=== PATIENT | male | born 1975 | race Caucasian/White ===

== ENCOUNTER 2024-12-12 15:21 | Emergency (ER) | payer MEDICAID, SELFPAY ==
[2024-12-12 15:35] VITALS: BP 150/90; BP 212/128; PULSE 73; PULSE 83; RESP 16; TEMP 36.6; O2SAT 90; O2SAT 98; BMI 25.1
--- NOTE | 2024-12-12 15:52 | ED_ITS ---
HPI - Overdose General Chief Complaint: Overdose Stated Complaint: found unresponsive, 4 mg narcan given, now awake Time Seen by Provider: 12/12/24 15:30 Related Data Allergies Allergy/AdvReac Type Severity Reaction Status Date / Time trazodone (TRAZODONE) Allergy Unknown UNKNOWN Verified 12/12/24 15:40 [facility] Social History Social History Unable to assess alcohol history related to: Refusing to respond Smoked in Last 30 Days: Yes Use of substances other than those prescribed or required for medical reasons: Refusing to respond Advance Directives: No Advance Directives Information Provided: No Do you have a plan to hurt others: No Plan Physical Exam Vital Signs: Vital Signs: Last Vital Signs Temp 0 F L 12/12/24 16:21 Pulse 0 L 12/12/24 16:21 Resp 0 L 12/12/24 16:21 BP 0/0 L 12/12/24 16:21 Pulse Ox 98 12/12/24 15:35 O2 Del Method Room Air 12/12/24 15:35 BMI result Body Mass Index 25.1 Course Reevaluation(s) Reevaluation #1: Patient ran all the way to the ICU nursing had to jefe after him. Patient is refusing to stay here. She is choosing to leave against medical advice he recognizes the risks of leaving include but are not limited to Time: 15:56 Medications Administered Discontinued Medications Generic Name Dose Route Start Last Admin Trade Name Luis Enrique PRN Reason Stop Dose Admin Naloxone HCl 8 mg 12/12/24 15:28 12/12/24 16:10 Naloxone Hcl Nasal Take Home 4 Mg [place] NOSTRILALT 12/12/24 15:29 8 mg ONCE ONE Administration Discharge Plan Discharge Clinical Impression: Drug overdose, Left against medical advice Patient Disposition: Left Against Medical Advice Instructions: Against Medical Advice (ED), Adult Overdose (ED) Additional Instructions: Take your medications as prescribed. If you were prescribed antibiotics today, it is important that you take your medication to their entirety, do not skip any doses, do not finish them early. Follow-up with your primary care provider this week. Return to the emergency department with new or worsening symptoms. Such as fev ers, chills, chest pain, shortness of breath, nausea, vomiting, dizziness, headache, vision changes, lethargy In case of emergency call 911 Patient decided to leave against medical advice. I took the time to go over risks of leaving against medical advice including . Patient verbalizes understanding of this. Advised them to come back if they change their mind. Stand Alone Forms: Against Medical Advice Interventions: ED Discharge Assessment Last Done: 12/12/24 16:21 Discharge Date/Time: 12/12/24 16:23 Print Language: Bel[place]ian
--- OUTSIDE RECORDS SUMMARY | 2024-12-12 16:03 | XMS_ITS ---
[facility] Organization [facility] Care Team Organization Name Specialty Phone Email Start Date End Da te [facility] 01/17/2022 10/29/19 24
--- OUTSIDE RECORDS SUMMARY | 2024-12-12 16:03 | XMS_ITS | Clinical Summary ---
Author Organization [facility] Address [address] [place] [address] Phone Care Team Providers Care Evaporator Name Role Phone Physician, No Pcp Primary Care Provider Unavaila ble Allergies No known active allergies Medications No known medications Surgical History Surgery Date Site/Laterality Comments BACK SURGERY Medical History Medical History Date Comments Asthma Hypertension Social History Tobacco Use Types Packs/Day Years Used Date Smoking Tobacco: Never Smokeless Tobacco: Never Tobacco Cessation:Counseling Given: Not Answered Alcohol Use Standard Drinks/Week Comments Not Currently 0 (1 standard drink = 0.6 oz pur e alcohol) Sex and Gender Information Value Date Recorded Sex Assigned at Male 04/24/2024 9:09 PM EST Legal Sex Male 5:30 AM EST Gender Identity Male 04/24/2024 9:09 PM EST Sexual Orientation Straight 04/24/2024 9: 25 PM EST Obstetrics History Last Filed Vital Signs Vital Sign Reading Time Taken Comments Blood Pressure 153/113 04/25/2024 7:52 AM EST Pulse 99 04/25/2024 7:52 AM EST Temperature 36.7 C (98.1 F) 04/25/2024 7:52 AM EST Respiratory Rate 16 04/25/2024 7:52 AM EST Oxygen Saturation 99% 04/25/2024 7:52 AM EST Inhaled Oxygen Concentration - - Weight 86.2 kg (190 lb) 04/24/2024 7:56 PM EST Height 180.3 cm (5' 11 ) 04/24/2024 7:56 PM EST Body Mass Index 26.5 04/24/2024 7:56 PM EST Plan of Treatment Health Maintenance Due Date Last Done Comments Colorectal Cancer Screening: Colonoscopy 1977 Hepatitis A Vaccines (1 of 2 - Risk 2-dose series) 1996 11/18/2001, 11/22/2000 Hepatitis B Vaccines (2 of 3 - 19+ 3-dose series) 10/07/2000 09/09/2000 Pneumococcal Vaccine: Pediatrics (0 to 5 Years) and At-Risk Patients (6 to 49 Years) (2 of 2 - PCV) 02/27/2006 02/27/2005 DTaP,Tdap,and Td Vaccines (2 - Td or Tdap) 11/20/2019 11/19/2009 Cholesterol Screening (Lipid Panel) 02/12/2022 HIV Screening 02/12/2022 Hepatitis C Screening 02/12/2022 Social Influencers of Health Screening 02/12/2022 Depression Screening 03/12/2024 COVID-19 Vaccine ( - season) 2024 05/21/2022, 08/04/2020 Influenza Vaccine (#1) 2024 9, 02/25/2017, 06/08/2016, Additional history exists RSV Immunization Adult Patients (1 - 1-dose 75+ series) 2052 MMR Vaccines Aged Out 07/06/2010 No longer eligi ble based on patient's age to complete this topic HIB Vaccines Aged Out No longer eligi ble based on patient's age to complete this topic HPV Vaccines Aged Out No longer eligi ble based on patient's age to complete this topic IPV Vaccines Aged Out No longer eligi ble based on patient's age to complete this topic Meningococcal ACWY Vaccine Aged Out N o longer eligible based on patient's age to complete this topic Meningococcal B Vaccine Aged Out No l onger eligible based on patient's age to complete this topic RSV Immunization Patients Under 20 months Aged Out No longer eligible based on patient's age to complete this topic Varicella Vaccines Aged Out No longer eligible based on patient's age to complete this topic Insurance PLAN Care Teams Evaporator Relationship Specialty Start Date End Date Physician, No Pcp PCP - General 04/24/24
[2024-12-12] MEDS: Naloxone HCl Nasal TAKE HOME 4 MG SPRAY 8 MG NOSTRILALT (16:10)
--- NOTE | 2024-12-12 16:14 | PC.NURSE ---
Pt requesting to leave AMA, MINERVA Ramon made aware. Pt up oob, ambulatory in hallway with steady gait. Pt stating Ya'll can't keep me locked up. Pt given taken home narcan, educated on leaving AMA. Pt understands education given by this RN. Belongings given back to patient, pt ambulatory to bathroom with steady gait.
[2024-12-12 16:21] VITALS: BP 0/0; PULSE 0; RESP 0; TEMP -17.7; TEMP 0
== END 2024-12-12 16:23 | disposition left against medical advice (07) ==
PROVIDERS: Emergency Provider Emergency Medicine
DX: T50.901A Poisoning by unspecified drugs, medicaments and biological substances, accidental (unintentional), initial encounter (principal); R40.4 Transient alteration of awareness; Y92.9 Unspecified place or not applicable
CPT/HCPCS: 99283; 99285